=== PATIENT | male | born 1985 | race Caucasian/White ===

== ENCOUNTER 2020-01-08 21:59 | Emergency (ER) | payer MEDICAID, OTHER ==
[~2020-01-08] VITALS: Ht 180.3 cm; Wt 68.1 kg
[2020-01-08 22:01] VITALS: BP 138/94
[2020-01-08] MEDS ORDERED: LIDOcaine 1% W/epiNEPHrine 1:200,000 10ml vial IJ ONE (22:20)
[2020-01-08] MEDS ORDERED: TETanus/Pertussis (Acell)/Diphther VAC/PF (Tdap-Adult) 0.5ml syringe IMVAC ONE (22:20)
[2020-01-08] MEDS ORDERED: bacitracin 15gm ointment TP ONE (22:20)
--- NOTE | 2020-01-08 22:38 | NUR ---
BACK FROM CT
== END 2020-01-09 ==
LOC: ER 21:59
DX: S01.412A Laceration without foreign body of left cheek and temporomandibular area, initial encounter (principal); Z02.89 Encounter for other administrative examinations; W50.0XXA Accidental hit or strike by another person, initial encounter; Y93.89 Activity, other specified; Y92.89 Other specified places as the place of occurrence of the external cause; Y99.8 Other external cause status
CPT/HCPCS: 12013; 70450; 70486; 90471; 90715; 99285

== ENCOUNTER 2020-09-16 19:48 | Emergency (ER) | payer MEDICAID ==
[~2020-09-16] VITALS: Ht 180.3 cm; Wt 70.5 kg
[2020-09-16 19:59] VITALS: BP 121/79
== END 2020-09-16 21:36 | disposition home or self-care (01) ==
LOC: ER 19:49
DX: M25.462 Effusion, left knee (principal); M25.562 Pain in left knee
CPT/HCPCS: 29505; 73564; 99284

== ENCOUNTER 2023-09-16 20:18 | Emergency (ER) | payer MEDICAID ==
[~2023-09-16] VITALS: Ht 182.9 cm; Wt 68.2 kg
[2023-09-16 20:37] VITALS: BP 131/99; PULSE 88; RESP 16; TEMP 97.2; O2SAT 94
[2023-09-16] MEDS: LIDOcaine 1% W/epiNEPHrine 1:100,000 20ml vial SQ ONE (21:57)
[2023-09-16] MEDS: bacitracin 15gm ointment TP ONE (22:22)
== END 2023-09-16 22:33 | disposition home or self-care (01) ==
LOC: ER 20:18
DX: S51.812A Laceration without foreign body of left forearm, initial encounter (principal); W19.XXXA Unspecified fall, initial encounter; Y93.89 Activity, other specified; Y92.89 Other specified places as the place of occurrence of the external cause; Y99.8 Other external cause status
CPT/HCPCS: 12001; 99284; A6258; A6446